=== PATIENT | male | born 1960 | race Caucasian/White ===

== ENCOUNTER 2016-11-23 09:41 | Inpatient (IN) | payer MEDICARE, MEDICAID ==
[~2016-11-23] VITALS: Ht 172.7 cm; Wt 76.0 kg
[~2016-11-23 09:41] MED LIST: ASPI-1093 PO; DIVA500T35 PO; FOLI1 PO; LEVO25TA9 PO; OLAN15TA5 PO; THIA100 PO
[2016-11-23 11:51] VITALS: BP 113/75
[2016-11-23] MEDS ORDERED: ZOLPIDEM TARTRATE 10 MG TABLET PO PRN (12:00)
[2016-11-23] MEDS ORDERED: HALOPERIDOL 5 MG TABLET PO PRN (12:00)
[2016-11-23] MEDS ORDERED: LORazepam 2 MG TABLET PO PRN (12:00)
[2016-11-23] MEDS ORDERED: INFLUENZA VIRUS VACCINE QVS 2016-17 (3YR+)/PF 60 MCG/0.5 ML SYRINGE IM ONE (12:30)
[2016-11-23] MEDS ORDERED: PNEUMOCOCCAL VACCINE POLYVALENT 0.5 ML VIAL [PPSV23] IM ONE (12:30)
[2016-11-23 14:38] VITALS: BP 107/61
[2016-11-23 16:16] VITALS: BP 113/77
[2016-11-23] MEDS: DIVALPROEX SODIUM 500 MG ER TABLET PO SCH (16:50)
[2016-11-23] MEDS: OLANZapine 10 MG TABLET PO SCH (20:32)
[2016-11-24] MEDS: LEVOTHYROXINE SODIUM 25 MCG TABLET PO SCH (06:56)
[2016-11-24 08:21] VITALS: BP_SYST 112; BP_SYST 121; BP_DIAS 69; BP_DIAS 84
[2016-11-24 08:48] LABS: BASOPHILS % (AUTO) 0.8 % (0.0-2.0); HEMATOCRIT 25.8 % (41-53); HEMOGLOBIN 8.1 g/dL (13.5-17.5); LYMPHOCYTES # (AUTO) 2.2 K/uL (1.0-4.8); LYMPHOCYTES % (AUTO) 26.8 % (22.0-44.0); MEAN CORPUSCULAR HEMOGLOBIN 28.8 pg (26.0-34.0); MEAN CORPUSCULAR HGB CONC 31.4 G/dL (31.0-37.0); MEAN CORPUSCULAR VOLUME 92 fL (80-100); MONOCYTES # (AUTO) 0.8 K/uL (0.1-1.0); NEUTROPHILS # (AUTO) 4.9 K/uL (1.8-7.7); NEUTROPHILS % (AUTO) 60.4 % (40.0-70.0); PLATELET COUNT (AUTO) 367 K/uL (150-450); RED BLOOD CELL COUNT(AUTO) 2.81 MIL/uL (4.50-5.90); RED CELL DISTRIBUTION WIDTH 23.2 % (11.5-14.5); WHITE BLOOD COUNT (AUTO) 8.1 K/uL (4.5-11.0)
[2016-11-24 09:14] LABS: RBC MORPHOLOGY COMMENT ABNORMAL RBC MORPH
[2016-11-24] MEDS: ASPIRIN 81 MG CHEWABLE TABLET PO SCH (09:32)
[2016-11-24] MEDS: DIVALPROEX SODIUM 500 MG ER TABLET PO SCH ×2 (09:32→16:39)
[2016-11-24 09:47] LABS: ALANINE AMINOTRANSFERASE 15 U/L (12-78); ALBUMIN 3.1 g/dL (3.4-5.0); ANION GAP 9 mmol/L (8-16); ASPARTATE AMINOTRANSFERASE 26 U/L (15-37); BILIRUBIN,TOTAL 0.5 mg/dL (0.1-1.0); CARBON DIOXIDE 27 mmol/L (22-29); CHLORIDE 104 mmol/L (98-107); GLOMERULAR FILTR. RATE CALC > 60 mL/min (>60); POTASSIUM 4.4 mmol/L (3.5-5.1); SODIUM SERUM 140 mmol/L (136-145); THYROID STIMULATING HORMONE 4.69 uIU/mL (0.36-3.74); TOTAL PROTEIN, SERUM 7.3 g/dL (6.4-8.2); UREA NITROGEN, BLOOD 10 mg/dL (7-18)
[2016-11-24 10:34] LABS: ADD UA MICROSCOPIC NO; APPEARANCE,URINE CLEAR (CLEAR); GLUCOSE, URINE (UA) NEGATIVE (NEGATIVE); KETONES,URINE NEGATIVE (NEGATIVE); LEUKOCYTE ESTERASE ,URINE NEGATIVE (NEGATIVE); OCCULT BLOOD,URINE NEGATIVE (NEGATIVE); PROTEIN,URINE NEGATIVE (NEGATIVE)
[2016-11-24] MEDS ORDERED: CYANOCOBALAMIN 1,000 MCG/ML VIAL IM ONE (14:00)
[2016-11-24 16:14] VITALS: BP 126/77
[2016-11-24] MEDS ORDERED: BISACODYL 5 MG EC TABLET PO PRN (16:15)
[2016-11-24] MEDS ORDERED: LACTULOSE 20 GM/30 ML SOLUTION UDCUP PO PRN (16:15)
[2016-11-24] MEDS: OLANZapine 10 MG TABLET PO SCH (20:34)
[2016-11-25 05:54] VITALS: BP 98/67
[2016-11-25] MEDS: LEVOTHYROXINE SODIUM 25 MCG TABLET PO SCH (06:22)
[2016-11-25 08:13] VITALS: BP 107/61
[2016-11-25] MEDS: MULTIVITAMINS WITH IRON TABLET PO SCH (09:22)
[2016-11-25] MEDS: DOCUSATE SODIUM 250 MG CAPSULE PO SCH ×2 (09:22→16:35)
[2016-11-25] MEDS: DIVALPROEX SODIUM 500 MG ER TABLET PO SCH ×2 (09:22→16:35)
[2016-11-25] MEDS: FOLIC ACID 1 MG TABLET PO SCH (09:22)
[2016-11-25] MEDS: ASPIRIN 81 MG CHEWABLE TABLET PO SCH (09:22)
[2016-11-25] MEDS: EPOETIN ALFA 10,000 UNITS/ML VIAL SQ SCH (09:27)
[2016-11-25 16:07] VITALS: BP 111/68
[2016-11-25] MEDS: OLANZapine 10 MG TABLET PO SCH (20:34)
[2016-11-26 01:44] VITALS: BP 101/63
[2016-11-26] MEDS: LEVOTHYROXINE SODIUM 25 MCG TABLET PO SCH (06:06)
[2016-11-26 08:02] VITALS: BP 94/63
[2016-11-26 08:49] LABS: HEMOGLOBIN A1C 4.8 % (4.5-6.2)
[2016-11-26 08:51] LABS: CREATINE KINASE, TOTAL 33 U/L (39-308)
[2016-11-26 09:30] VITALS: BP 105/72
[2016-11-26] MEDS: DIVALPROEX SODIUM 500 MG ER TABLET PO SCH ×2 (09:30→16:31)
[2016-11-26] MEDS: DOCUSATE SODIUM 250 MG CAPSULE PO SCH ×2 (09:31→16:31)
[2016-11-26] MEDS: FOLIC ACID 1 MG TABLET PO SCH (09:31)
[2016-11-26] MEDS: MULTIVITAMINS WITH IRON TABLET PO SCH (09:31)
[2016-11-26] MEDS: ASPIRIN 81 MG CHEWABLE TABLET PO SCH (09:31)
[2016-11-26 16:02] VITALS: BP 107/68
[2016-11-26] MEDS: OLANZapine 10 MG TABLET PO SCH (20:38)
[2016-11-27 00:45] VITALS: BP 100/61
[2016-11-27] MEDS: LEVOTHYROXINE SODIUM 25 MCG TABLET PO SCH (06:44)
[2016-11-27 08:03] VITALS: BP 104/58
[2016-11-27] MEDS: DIVALPROEX SODIUM 500 MG ER TABLET PO SCH ×2 (09:20→16:24)
[2016-11-27] MEDS: ASPIRIN 81 MG CHEWABLE TABLET PO SCH (09:21)
[2016-11-27] MEDS: FOLIC ACID 1 MG TABLET PO SCH (09:23)
[2016-11-27] MEDS: MULTIVITAMINS WITH IRON TABLET PO SCH (10:24)
[2016-11-27] MEDS: DOCUSATE SODIUM 250 MG CAPSULE PO SCH ×2 (10:24→16:24)
[2016-11-27] MEDS: EPOETIN ALFA 10,000 UNITS/ML VIAL SQ SCH (10:25)
[2016-11-27 16:05] VITALS: BP 110/75
[2016-11-27] MEDS: OLANZapine 10 MG TABLET PO SCH (20:23)
[2016-11-28 04:50] VITALS: BP 111/75
[2016-11-28] MEDS: LEVOTHYROXINE SODIUM 25 MCG TABLET PO SCH (06:35)
[2016-11-28 08:23] VITALS: BP 100/69
[2016-11-28] MEDS: DOCUSATE SODIUM 250 MG CAPSULE PO SCH ×2 (09:02→16:11)
[2016-11-28] MEDS: FOLIC ACID 1 MG TABLET PO SCH (09:02)
[2016-11-28] MEDS: MULTIVITAMINS WITH IRON TABLET PO SCH (09:02)
[2016-11-28] MEDS: ASPIRIN 81 MG CHEWABLE TABLET PO SCH (09:02)
[2016-11-28] MEDS: DIVALPROEX SODIUM 500 MG ER TABLET PO SCH ×2 (09:02→16:10)
[2016-11-28] MEDS: EPOETIN ALFA 10,000 UNITS/ML VIAL SQ SCH (10:17)
[2016-11-28 16:04] VITALS: BP 104/70
[2016-11-28] MEDS: OLANZapine 10 MG TABLET PO SCH (20:29)
[2016-11-29 02:54] VITALS: BP 100/69
[2016-11-29] MEDS: LEVOTHYROXINE SODIUM 25 MCG TABLET PO SCH (06:31)
[2016-11-29 08:18] LABS: BASOPHILS % (AUTO) 0.8 % (0.0-2.0); EOSINOPHILS % (AUTO) 2.8 % (1.0-6.0); HEMOGLOBIN 9.1 g/dL (13.5-17.5); LYMPHOCYTES # (AUTO) 1.9 K/uL (1.0-4.8); LYMPHOCYTES % (AUTO) 21.1 % (22.0-44.0); MEAN CORPUSCULAR HGB CONC 31.6 G/dL (31.0-37.0); MEAN CORPUSCULAR VOLUME 92 fL (80-100); MONOCYTES # (AUTO) 0.6 K/uL (0.1-1.0); MONOCYTES % (AUTO) 6.9 % (2.0-9.0); NEUTROPHILS # (AUTO) 6.3 K/uL (1.8-7.7); NEUTROPHILS % (AUTO) 68.4 % (40.0-70.0); PLATELET COUNT (AUTO) 363 K/uL (150-450); RED BLOOD CELL COUNT(AUTO) 3.16 MIL/uL (4.50-5.90); RED CELL DISTRIBUTION WIDTH 21.8 % (11.5-14.5); WHITE BLOOD COUNT (AUTO) 9.2 K/uL (4.5-11.0)
[2016-11-29 08:24] VITALS: BP 101/60
[2016-11-29 08:37] LABS: RBC MORPHOLOGY COMMENT ABNORMAL RBC MORPH
[2016-11-29] MEDS: FOLIC ACID 1 MG TABLET PO SCH (08:41)
[2016-11-29] MEDS: DOCUSATE SODIUM 250 MG CAPSULE PO SCH ×2 (08:41→16:31)
[2016-11-29] MEDS: DIVALPROEX SODIUM 500 MG ER TABLET PO SCH ×2 (08:41→16:32)
[2016-11-29] MEDS: ASPIRIN 81 MG CHEWABLE TABLET PO SCH (08:41)
[2016-11-29] MEDS: MULTIVITAMINS WITH IRON TABLET PO SCH (08:41)
[2016-11-29 16:00] VITALS: BP 108/63
[2016-11-29] MEDS: OLANZapine 7.5 MG TABLET PO SCH (20:33)
[2016-11-30 02:21] VITALS: BP 101/68
[2016-11-30] MEDS: LEVOTHYROXINE SODIUM 25 MCG TABLET PO SCH (07:03)
[2016-11-30 08:25] VITALS: BP 104/65
[2016-11-30] MEDS: MULTIVITAMINS WITH IRON TABLET PO SCH (09:25)
[2016-11-30] MEDS: FOLIC ACID 1 MG TABLET PO SCH (09:25)
[2016-11-30] MEDS: ASPIRIN 81 MG CHEWABLE TABLET PO SCH (09:25)
[2016-11-30] MEDS: DOCUSATE SODIUM 250 MG CAPSULE PO SCH ×2 (09:25→16:33)
[2016-11-30] MEDS: DIVALPROEX SODIUM 500 MG ER TABLET PO SCH ×2 (09:25→16:33)
[2016-11-30] MEDS: EPOETIN ALFA 10,000 UNITS/ML VIAL SQ SCH (09:58)
[2016-11-30 13:07] LABS: HEPATITIS Bs ANTIGEN SCREEN P Negative (Negative); HEPATITIS C AB SCREEN <0.1 s/co ratio (0.0-0.9)
[2016-11-30 16:11] VITALS: BP_SYST 109; BP_SYST 118; BP_DIAS 67; BP_DIAS 79
[2016-11-30] MEDS: OLANZapine 7.5 MG TABLET PO SCH (20:33)
[2016-12-01 05:40] VITALS: BP 118/69
[2016-12-01] MEDS: LEVOTHYROXINE SODIUM 25 MCG TABLET PO SCH (06:40)
[2016-12-01 08:04] VITALS: BP 92/57
[2016-12-01] MEDS: DOCUSATE SODIUM 250 MG CAPSULE PO SCH ×2 (09:06→17:55)
[2016-12-01] MEDS: DIVALPROEX SODIUM 500 MG ER TABLET PO SCH ×2 (09:06→17:55)
[2016-12-01] MEDS: ASPIRIN 81 MG CHEWABLE TABLET PO SCH (09:06)
[2016-12-01] MEDS: MULTIVITAMINS WITH IRON TABLET PO SCH (09:07)
[2016-12-01] MEDS: FOLIC ACID 1 MG TABLET PO SCH (09:07)
[2016-12-01 16:00] VITALS: BP 103/70
[2016-12-01] MEDS: OLANZapine 7.5 MG TABLET PO SCH (20:34)
[2016-12-02 00:01] VITALS: BP 101/60
[2016-12-02] MEDS: LEVOTHYROXINE SODIUM 25 MCG TABLET PO SCH (06:30)
[2016-12-02] MEDS: FOLIC ACID 1 MG TABLET PO SCH (08:40)
[2016-12-02] MEDS: MULTIVITAMINS WITH IRON TABLET PO SCH (08:40)
[2016-12-02] MEDS: DOCUSATE SODIUM 250 MG CAPSULE PO SCH ×2 (08:40→16:32)
[2016-12-02] MEDS: DIVALPROEX SODIUM 500 MG ER TABLET PO SCH ×2 (08:40→16:32)
[2016-12-02] MEDS: ASPIRIN 81 MG CHEWABLE TABLET PO SCH (08:40)
[2016-12-02 09:00] VITALS: BP 98/63
[2016-12-02] MEDS: EPOETIN ALFA 10,000 UNITS/ML VIAL SQ SCH (10:27)
[2016-12-02 16:01] VITALS: BP 104/67
[2016-12-02] MEDS: OLANZapine 7.5 MG TABLET PO SCH (20:36)
[2016-12-03 06:10] VITALS: BP 92/60
[2016-12-03] MEDS: LEVOTHYROXINE SODIUM 25 MCG TABLET PO SCH (06:43)
[2016-12-03 08:46] VITALS: BP 98/68
[2016-12-03] MEDS: ASPIRIN 81 MG CHEWABLE TABLET PO SCH (09:18)
[2016-12-03] MEDS: DOCUSATE SODIUM 250 MG CAPSULE PO SCH ×2 (09:18→16:03)
[2016-12-03] MEDS: MULTIVITAMINS WITH IRON TABLET PO SCH (09:18)
[2016-12-03] MEDS: FOLIC ACID 1 MG TABLET PO SCH (09:18)
[2016-12-03] MEDS: DIVALPROEX SODIUM 500 MG ER TABLET PO SCH ×2 (09:18→16:03)
[2016-12-03] MEDS ORDERED: ALBUTEROL SULFATE HFA 90 MCG/PUFF 8 GM INHALER IH PRN (09:30)
[2016-12-03 16:16] VITALS: BP 113/64
[2016-12-03] MEDS: OLANZapine 7.5 MG TABLET PO SCH (20:42)
[2016-12-04 02:05] VITALS: BP 108/65
[2016-12-04] MEDS: LEVOTHYROXINE SODIUM 25 MCG TABLET PO SCH (06:26)
[2016-12-04] MEDS: DIVALPROEX SODIUM 500 MG ER TABLET PO SCH ×2 (08:16→16:07)
[2016-12-04] MEDS: MULTIVITAMINS WITH IRON TABLET PO SCH (08:16)
[2016-12-04] MEDS: DOCUSATE SODIUM 250 MG CAPSULE PO SCH ×2 (08:16→16:07)
[2016-12-04] MEDS: FOLIC ACID 1 MG TABLET PO SCH (08:17)
[2016-12-04] MEDS: ASPIRIN 81 MG CHEWABLE TABLET PO SCH (08:17)
[2016-12-04 08:30] VITALS: BP 111/59
[2016-12-04] MEDS: EPOETIN ALFA 10,000 UNITS/ML VIAL SQ SCH (09:52)
[2016-12-04 16:04] VITALS: BP 120/73
[2016-12-04] MEDS: OLANZapine 7.5 MG TABLET PO SCH (20:14)
[2016-12-05 00:55] VITALS: BP 101/67
[2016-12-05] MEDS: LEVOTHYROXINE SODIUM 25 MCG TABLET PO SCH (06:44)
[2016-12-05 08:17] VITALS: BP 102/63
[2016-12-05] MEDS: DIVALPROEX SODIUM 500 MG ER TABLET PO SCH ×2 (08:41→16:06)
[2016-12-05] MEDS: ASPIRIN 81 MG CHEWABLE TABLET PO SCH (08:41)
[2016-12-05] MEDS: MULTIVITAMINS WITH IRON TABLET PO SCH (08:41)
[2016-12-05] MEDS: DOCUSATE SODIUM 250 MG CAPSULE PO SCH ×2 (08:41→16:06)
[2016-12-05] MEDS: FOLIC ACID 1 MG TABLET PO SCH (08:41)
[2016-12-05 16:02] VITALS: BP 100/66
[2016-12-05] MEDS: OLANZapine 7.5 MG TABLET PO SCH (20:06)
[2016-12-06 03:02] VITALS: BP 101/62
[2016-12-06] MEDS: LEVOTHYROXINE SODIUM 25 MCG TABLET PO SCH (06:33)
[2016-12-06 08:03] VITALS: BP 111/60
[2016-12-06 08:51] LABS: BASOPHILS % (AUTO) 0.5 % (0.0-2.0); EOSINOPHILS % (AUTO) 1.9 % (1.0-6.0); HEMATOCRIT 30.9 % (41-53); HEMOGLOBIN 9.8 g/dL (13.5-17.5); LYMPHOCYTES # (AUTO) 1.8 K/uL (1.0-4.8); LYMPHOCYTES % (AUTO) 18.8 % (22.0-44.0); MEAN CORPUSCULAR HEMOGLOBIN 29.5 pg (26.0-34.0); MEAN CORPUSCULAR HGB CONC 31.8 G/dL (31.0-37.0); MEAN CORPUSCULAR VOLUME 93 fL (80-100); MONOCYTES # (AUTO) 0.7 K/uL (0.1-1.0); MONOCYTES % (AUTO) 7.7 % (2.0-9.0); NEUTROPHILS # (AUTO) 6.9 K/uL (1.8-7.7); NEUTROPHILS % (AUTO) 71.1 % (40.0-70.0); PLATELET COUNT (AUTO) 438 K/uL (150-450); RED BLOOD CELL COUNT(AUTO) 3.33 MIL/uL (4.50-5.90); RED CELL DISTRIBUTION WIDTH 22.3 % (11.5-14.5); WHITE BLOOD COUNT (AUTO) 9.7 K/uL (4.5-11.0)
[2016-12-06] MEDS: FOLIC ACID 1 MG TABLET PO SCH (09:24)
[2016-12-06] MEDS: ASPIRIN 81 MG CHEWABLE TABLET PO SCH (09:24)
[2016-12-06] MEDS: DIVALPROEX SODIUM 500 MG ER TABLET PO SCH (09:24)
[2016-12-06] MEDS: MULTIVITAMINS WITH IRON TABLET PO SCH (09:24)
[2016-12-06] MEDS: DOCUSATE SODIUM 250 MG CAPSULE PO SCH (09:24)
[2016-12-06 09:25] LABS: RBC MORPHOLOGY COMMENT ABNORMAL RBC MORPH
[2016-12-06] MEDS ORDERED: DOCU250C91 PO (12:22)
[2016-12-06] MEDS ORDERED: LEVO25TA4 PO (12:22)
[2016-12-06] MEDS ORDERED: EPOE10I SQ (12:22)
[2016-12-06] MEDS ORDERED: MVITFE PO (12:22)
== END 2016-12-06 15:00 | disposition home or self-care (01) | DRG 885 ==
LOC: B2X 12:00 → B2S 12:00 → EDSTATUS 12:20
DX: F25.1 Schizoaffective disorder, depressive type (principal); F19.20 Other psychoactive substance dependence, uncomplicated; D53.9 Nutritional anemia, unspecified; E03.9 Hypothyroidism, unspecified; E55.9 Vitamin D deficiency, unspecified; I50.9 Heart failure, unspecified; I11.0 Hypertensive heart disease with heart failure; J44.9 Chronic obstructive pulmonary disease, unspecified; F10.10 Alcohol abuse, uncomplicated; F17.210 Nicotine dependence, cigarettes, uncomplicated; I95.9 Hypotension, unspecified; K59.00 Constipation, unspecified; Z91.19 Patient's noncompliance with other medical treatment and regimen; Z95.0 Presence of cardiac pacemaker; Z91.5 Personal history of self-harm; Z98.890 Other specified postprocedural states; Z79.82 Long term (current) use of aspirin; Z79.899 Other long term (current) drug therapy; Z71.6 Tobacco abuse counseling; Z71.51 Drug abuse counseling and surveillance of drug abuser
CPT/HCPCS: 80074; 82306; 82607; 82746; 83036; 83735; 84439; 84443; 86592; J0885; J3420